=== PATIENT | male | born 1995 | race African-American/Black ===

== ENCOUNTER 2019-12-26 02:10 | Emergency (ER) | payer SELFPAY ==
[~2019-12-26] VITALS: Ht 180.3 cm; Wt 86.4 kg
[2019-12-26] MEDS ORDERED: ondansetron 4mg rapidly disintigrating tab PO ONE (02:30)
[2019-12-26] MEDS ORDERED: HYDROcodone/acetaminophen 10/325mg tab PO ONE (02:30)
[2019-12-26] MEDS ORDERED: ondansetron/PF 4mg/2ml inj IV ONE (02:35)
[2019-12-26] MEDS ORDERED: etomidate 2mg/ml inj. IV ONE ×2 (02:35→04:05)
[2019-12-26] MEDS ORDERED: fentaNYL/PF 50MCG/1 ML 2ML syringe IV ONE (02:35)
[2019-12-26] MEDS ORDERED: ONDA4TAB6 PO (02:58)
[2019-12-26] MEDS ORDERED: HYDR-4353 PO (02:58)
--- NOTE | 2019-12-26 03:23 | NUR ---
PATIENT BECOMING MORE AWAKE, TALKING, AND MOVING DURING MOD SEDATION - ADELA VERBAL ORDER 5MG ETOMIDATE
[2019-12-26 04:36] VITALS: BP 108/57
== END 2019-12-26 04:32 | disposition home or self-care (01) ==
LOC: ER 02:11
DX: S82.831A Other fracture of upper and lower end of right fibula, initial encounter for closed fracture (principal); S93.04XA Dislocation of right ankle joint, initial encounter; F17.200 Nicotine dependence, unspecified, uncomplicated; Z72.89 Other problems related to lifestyle; Z79.899 Other long term (current) drug therapy; W01.0XXA Fall on same level from slipping, tripping and stumbling without subsequent striking against object, initial encounter; Y93.89 Activity, other specified; Y92.89 Other specified places as the place of occurrence of the external cause; Y99.8 Other external cause status
CPT/HCPCS: 27788; 73600; 73610; 96374; 96375; 99152; 99285; J2405; J3010